=== PATIENT | male | born 1975 | race African-American/Black ===

== ENCOUNTER 2018-06-29 16:11 | Emergency (ER) | payer OTHER, SELFPAY ==
[2018-06-29 16:12] VITALS: BP 179/118; PULSE 111; RESP 16; TEMP 36.3; O2SAT 98; BMI 18.6
--- NOTE | 2018-06-29 16:58 | ED.VISSUMM ---
- ER Visit Summary Date of Service: 06/29/18 Chief Complaint: Trichomonas exposure History of Present Illness: The patient is a 43 M presents to the emergency department for trichomonas exposure. The patient was in his normal state of health. He states that his ex-fianc? called and said that she just tested positive for trichomonas. He has been sexually active with her. He has absolutely no symptoms. He is otherwise healthy. Physical Examination: Exam is relatively unremarkable. Patient declined genital examination. His abdomen is soft and nontender. Test Results: Emergency Department Course and Treatment: The patient has a positive trichomonas exposure. He declined any further treatment. He will be given Flagyl for 7 days. He was counseled to abstain from intercourse. Treatment Plan: [] Disposition: [] Impression: Trichomonas exposure This note was generated with [employer] dictation software. It may contain incorrect words, spelling, and punctuation that were not noted in review of the chart prior to signing ED Disposition - Plan for ED Patient: Instructions: ED Urethritis Infec Vs Inflam Male Prescriptions: Metronidazole [Flagyl] 500 mg PO Q12H #14 tab Referrals: Re Epperson [NON-STAFF] -
== END 2018-06-29 17:13 | disposition home or self-care (01) ==
LOC: ED 17:12
PROVIDERS: Emergency Provider Emergency Medicine
DX: Z20.2 Contact with and (suspected) exposure to infections with a predominantly sexual mode of transmission (principal)
CPT/HCPCS: 99282

== ENCOUNTER 2020-03-31 19:11 | Emergency (ER) | payer OTHER, SELFPAY ==
[2020-03-31 19:13] VITALS: BP 170/94; PULSE 101; RESP 18; TEMP 36.6; O2SAT 100; BMI 41.8
[2020-03-31 19:15] VITALS: BP 170/94; PULSE 101; RESP 18; TEMP 36.6; O2SAT 100
--- NOTE | 2020-03-31 19:26 | ED.DCSUM_ITS ---
- ER Visit Summary Date of Service: 03/31/20 Chief Complaint: Abdominal abscess History of Present Illness: The patient is a 45 M who presents with an abscess to his lower abdomen that has been getting worse over the past week. Patient states that 3 days ago his girlfriend squeezed the area and it opened. Patient states a large amount of purulent material was expressed by his girlfriend at the time. Patient states the pain is getting worse. Patient states the area is getting harder. Patient admits to continued drainage from the area. Patient denies any fevers or chills. Patient describes the pain as throbbing. Patient states it is localized to the lower abdomen. Physical Examination: Vital signs are stable. Patient is afebrile. Patient is in no acute distress. Skin is warm dry. There is a tender indurated area over the lower abdomen in the midline. There is a 5 mm open area. There is a moderate amount of purulent drainage noted coming from the wound. There is some erythema and warmth around the wound. Abdomen is soft. Bowel sounds are normal. There is no tenderness. Cranial nerves II through XII are intact. There are no focal motor or sensory deficits noted. Emergency Department Course and Treatment: The abscess was open and is draining. Moderate amount of purulent material was expressed. There is no further purulent material in the wound. Patient was given a dose of Keflex here. Patient was given a prescription for Keflex. Patient was instructed to keep the area open. Patient was instructed to use Neosporin dressings. Patient was instructed to follow-up with his primary care physician in 5 to 7 days. Patient was instructed return if worse in any way. Patient understood and was agreeable with the plan. All questions were answered. Disposition: Discharge home Impression: Abdominal wall abscess This note was generated with [employer] dictation software. It may contain incorrect words, spelling, and punctuation that were not noted in review of the chart prior to signing ED Disposition - Plan for ED Patient: Disposition: Home or Assisted Living Diagnosis: Abdominal wall abscess Instructions: ED Abscess Antibiotic Treatment Only Prescriptions: Cephalexin [Keflex] 500 mg PO Q6 #40 cap Prescription Printed Referrals: Care Physician,No Primary [Primary Care Provider] - 3-5 Days
[2020-03-31] MEDS: Cephalexin 500 MG Capsule PO (19:41)
== END 2020-03-31 19:58 | disposition home or self-care (01) ==
LOC: ED 19:51
PROVIDERS: Emergency Provider Emergency Medicine
DX: L02.211 Cutaneous abscess of abdominal wall (principal)
CPT/HCPCS: 99282